=== PATIENT | male | born 1955 | race Caucasian/White ===

== ENCOUNTER 2023-04-06 15:48 | Emergency (ER) | payer OTHER, MEDICARE ==
[~2023-04-06] VITALS: Ht 185.4 cm; Wt 97.5 kg
[2023-04-06 15:58] VITALS: BP 183/82
[2023-04-06] MEDS ORDERED: AMIT50 PO (18:27)
[2023-04-06] MEDS ORDERED: PARO20 PO (18:27)
[2023-04-06] MEDS ORDERED: Prilosec Otc20 MG PO (18:28)
[2023-04-06] MEDS ORDERED: Percocet 5-3251 EACH PO (19:58)
== END 2023-04-06 20:25 | disposition home or self-care (01) ==
LOC: ER 15:48
DX: S49.92XA Unspecified injury of left shoulder and upper arm, initial encounter (principal); M25.512 Pain in left shoulder; V28.49XA Other motorcycle driver injured in noncollision transport accident in traffic accident, initial encounter; Z88.5 Allergy status to narcotic agent; Z79.899 Other long term (current) drug therapy
CPT/HCPCS: 73030; 96374; 99284-25; A9270; J1885

== ENCOUNTER 2024-10-10 18:07 | Inpatient (IN) | payer MEDICARE, OTHER ==
[~2024-10-10] VITALS: Ht 190.5 cm; Wt 80.1 kg
[~2024-10-10 18:07] MED LIST: AMIT50 PO; PARO20 PO; Percocet 5-3251 EACH PO; Prilosec Otc20 MG PO
[2024-10-10] MEDS ORDERED: Thiamine HCl 100 MG Tab PO ONE (18:35)
[2024-10-10] MEDS ORDERED: LORazepam 2 MG/ML 1ML Injection IV ONE (18:35)
[2024-10-10] MEDS ORDERED: NS 1,000 ML IV SCH ×2 (18:40→23:55)
[2024-10-10] MEDS ORDERED: Folic Acid 1 MG TAB PO ONE (18:40)
[2024-10-10 18:57] LABS: BASOPHILS ABSOLUTE AUTO 0.04 K/mm3 (0.00-0.23); BASOPHILS PERCENT AUTO 0 % (0-2); EOSINOPHILS ABSOLUTE AUTO 0.04 K/mm3 (0.00-0.68); EOSINOPHILS PERCENT AUTO 0 % (0-6); Hematocrit 46.3 % (37.0-53.0); Hemoglobin 16.3 g/dL (13.5-17.5); IMMATURE GRAN ABSOLUTE AUTO 0.04 K/mm3 (0.00-0.10); IMMATURE GRAN PERCENT AUTO 0 % (0-1); LYMPHOCYTES ABSOLUTE AUTO 1.23 K/mm3 (0.84-5.20); LYMPHOCYTES PERCENT AUTO 11 % (21-46); MONOCYTES ABSOLUTE AUTO 1.18 K/mm3 (0.16-1.47); MONOCYTES PERCENT AUTO 10 % (4-13); Mean Corpuscular HGB 33.7 pg (26.0-34.0); Mean Corpuscular HGB Conc 35.2 g/dL (31.5-36.5); Mean Corpuscular Volume 96 fL (80-100); Mean Platelet Volume 9.8 fL (9.1-12.4); NEUTROPHILS ABSOLUTE AUTO 9.02 K/mm3 (1.96-9.15); NEUTROPHILS PERCENT AUTO 78 % (41-73); Platelet Count 426 K/mm3 (150-400); RDW Coefficient Variation 13.9 % (11.7-14.2); RDW Standard Deviation 49.2 fL (35.1-46.3); Red Blood Cell Count 4.83 M/mm3 (4.30-5.90); White Blood Cell Count 11.55 K/mm3 (4.00-11.30)
[2024-10-10 19:21] LABS: Ethanol (Alcohol), Blood, Med <3 mg/dL
[2024-10-10 19:34] LABS: Alanine Aminotransfer (ALT/SGP 57 U/L (12-78); Albumin, Blood 3.8 g/dL (3.4-5.0); Albumin/Globulin Ratio 1.2 (0.8-1.8); Alk Phos 104 U/L (50-136); Anion Gap 14 mmol/L (3-11); Aspartate Aminotrans (AST/SGOT 101 U/L (12-37); Bilirubin, Total 1.1 mg/dL (0.1-1.0); Blood Urea Nitrogen 19 mg/dL (8-24); Bun/Creatinine Ratio 25.9 (12.0-20.0); CO2, Blood 26 mmol/L (21-32); Calcium, Blood 9.6 mg/dL (8.5-10.1); Chloride, Blood 102 mmol/L (98-108); Creatinine, Blood 0.73 mg/dL (0.60-1.20); Globulin, Blood 3.3 g/dL (2.2-4.0); Glomerular Filtration Rate 99 (60-); Glucose, Blood 133 mg/dL (70-99); Potassium, Blood 3.7 mmol/L (3.5-5.5); Sodium, Blood 138 mmol/L (136-145); Total Protein, Blood 7.1 g/dL (6.4-8.2)
[2024-10-10 19:36] LABS: Influenza A, PCR NEGATIVE (NEGATIVE); Influenza B, PCR NEGATIVE (NEGATIVE); Resp Syncytial Virus, PCR NEGATIVE (NEGATIVE); SARS-Cov-2 (COVID-19) PCR, MMC NEGATIVE (NEGATIVE)
[2024-10-10] MEDS ORDERED: HydrALAZINE HCl 20 MG / ML 1ML Vial IV ONE (20:35)
[2024-10-10] MEDS ORDERED: ChlordiazePOXIDE 25 MG Cap PO PRN (23:55)
[2024-10-10] MEDS ORDERED: LORazepam 2 MG/ML 1ML Injection IV PRN (23:55)
[2024-10-10] MEDS ORDERED: Ondansetron HCl 2 MG / ML 2ML Vial IV PRN (23:55)
[2024-10-11] VITALS (10 sets, daily range): BP systolic 135–194; BP diastolic 70–117
[2024-10-11] MEDS ORDERED: Enoxaparin 40 MG/0.4 ML SYR SC SCH (00:21)
[2024-10-11] MEDS ORDERED: Thiamine HCl 100 MG in NS 50 ML IV SCH (00:24)
[2024-10-11] MEDS ORDERED: Potassium Chloride 40 MEQ in NS 250 ML IV ONE (00:25)
[2024-10-11] MEDS ORDERED: Magnesium Sulf 2 GM/Water 50ML 50 ML IV ONE (02:20)
[2024-10-11] MEDS ORDERED: HydrALAZINE HCl 20 MG / ML 1ML Vial IV PRN (03:30)
[2024-10-11] MEDS ORDERED: Melatonin 5 MG Tablet PO PRN (03:30)
--- NOTE | 2024-10-11 04:48 | NUR ---
ASSUMPTION / SHIFT SUMMARY PT ARRIVED TO UNIT @0100. AXO4 BUT MAKES "ODD" STATEMENTS REGARDING HEALTH AND SITUATION AT TIMES. COOPERATIVE/PLEASANT. NOTED TO BE SLIGHTLY ANXIOUS REGARDING MEDICATIONS, ASKS A LOT OF QUESTIONS REGARDING EACH MEDICATION BEING GIVEN, EVEN FLUIDS BUT ULTIMATELY IS WILLING TO TAKE WHAT IS PRESCRIBED WITH EDUCATION. PT NT TOLERATING IV KCL, PO TO BE ADMINISTERED. PT REQESTING TO NOT BE HOOKED UP TO IV FLUIDS HE HAS BEEN UNABLE TO SLEEP AT ALL DESPITE PO MELATONIN, LIBRIUM, AND IV ATIVAN, PT ULTIMATELY DISCONNECTED FROM FLUIDS @0500 PER REQUEST, WILL RESTART WHILE AWAKE. PT WITH HTN, IV MEDS ADMINISTERED TO EFFECT, STABLE. PT REMAINS ON RA. CIWAS STABLE WITH MEDS PER EMAR. PT SOMEWHAT WITHDRAWN AND UPSET ABOUT LACK OF SLEEP BUT IS THANKFUL FOR THIS RN ATTEMPTING TO MITIGATE WITH MEDICATION. APOLOGIES FOR BECOMING "GRUMPY" AT TIMES. HAS SET OFF BED ALARM THIS SHIFT BUT IS REORIENTABLE. OTHERWISE, ADMISSION COMPLETED. BED ALARM ON. CALL LIGHT WITHIN REACH.
[2024-10-11 04:49] LABS: BASOPHILS ABSOLUTE AUTO 0.07 K/mm3 (0.00-0.23); BASOPHILS PERCENT AUTO 1 % (0-2); EOSINOPHILS ABSOLUTE AUTO 0.18 K/mm3 (0.00-0.68); EOSINOPHILS PERCENT AUTO 2 % (0-6); Hematocrit 43.3 % (37.0-53.0); IMMATURE GRAN ABSOLUTE AUTO 0.03 K/mm3 (0.00-0.10); IMMATURE GRAN PERCENT AUTO 0 % (0-1); LYMPHOCYTES ABSOLUTE AUTO 2.48 K/mm3 (0.84-5.20); LYMPHOCYTES PERCENT AUTO 21 % (21-46); MONOCYTES ABSOLUTE AUTO 1.31 K/mm3 (0.16-1.47); MONOCYTES PERCENT AUTO 11 % (4-13); Mean Corpuscular HGB 33.5 pg (26.0-34.0); Mean Corpuscular HGB Conc 34.6 g/dL (31.5-36.5); Mean Corpuscular Volume 97 fL (80-100); Mean Platelet Volume 10.2 fL (9.1-12.4); NEUTROPHILS ABSOLUTE AUTO 7.54 K/mm3 (1.96-9.15); NEUTROPHILS PERCENT AUTO 65 % (41-73); Platelet Count 364 K/mm3 (150-400); RDW Coefficient Variation 13.9 % (11.7-14.2); Red Blood Cell Count 4.48 M/mm3 (4.30-5.90); White Blood Cell Count 11.61 K/mm3 (4.00-11.30)
[2024-10-11 05:21] LABS: Albumin, Blood 3.2 g/dL (3.4-5.0); Albumin/Globulin Ratio 1.1 (0.8-1.8); Bilirubin, Total 1.3 mg/dL (0.1-1.0); Bun/Creatinine Ratio 24.9 (12.0-20.0); Calcium, Blood 8.5 mg/dL (8.5-10.1); Creatinine, Blood 0.76 mg/dL (0.60-1.20); Globulin, Blood 2.8 g/dL (2.2-4.0); Potassium, Blood 3.5 mmol/L (3.5-5.5)
[2024-10-11] MEDS ORDERED: Potassium Chloride 20 MEQ TabCR PO ONE (08:00)
[2024-10-11] MEDS ORDERED: Triamcinolone Acet 0.1% Ointment 15 GM TOP PRN (08:50)
[2024-10-11] MEDS ORDERED: Losartan Potassium 25 MG Tab PO SCH (09:00)
[2024-10-11] MEDS ORDERED: Methyl Salicylate/Menth/Camph 57 GM TUBE TOP PRN (09:00)
[2024-10-11] MEDS ORDERED: Nicotine 21 MG PATCH TOP SCH (09:00)
[2024-10-11] MEDS ORDERED: Folic Acid 1 MG in NS 50 ML IV SCH (09:00)
[2024-10-11] MEDS ORDERED: Sodium Phosphate 15 MM in Dextrose 5% 250 ML IV STA (09:04)
[2024-10-11 11:15] LABS: Source, Urine Clean Catch
[2024-10-11 11:28] LABS: Appearance, Urine Clear (Clear); Bilirubin, Urine Neg (Neg); Blood, Urine 1+ (Neg); Color, Urine Yellow (P-Yellow); Glucose Qualitative, Urine Neg (Neg); Ketones, Urine Neg (Neg); Leukocyte Esterase, Urine Neg (Neg); Nitrite, Urine Neg (Neg); Protein, Urine Neg (Neg); Urobilinogen, Urine NORM (Normal)
[2024-10-11 11:41] LABS: U Amphetamine Screen Not Detected; U Barbituate Screen Not Detected; U Benzodiazapine Screen DETECTED; U Buprenorphine Screen Not Detected; U Cannabinoids Screen Not Detected; U Cocaine Screen Not Detected; U Methadone Screen Not Detected; U Methamphetamine Screen Not Detected; U Opiates Screen Not Detected; U Oxycodone Screen Not Detected; U Phencyclidine Screen Not Detected
[2024-10-11 11:46] LABS: Bacteria Not Seen /hpf; Red Blood Cells, Urine 0-2 /hpf (0-2); Squamous Epithelial Cells Rare /hpf (Few); White Blood Cells, Urine Not Seen /hpf (0-5)
--- NOTE | 2024-10-11 12:25 | NUR ---
MORNING SUMMARY THE PT IS DROWSY AND ORIENTEDX4; CIWA'S 7-14 THIS MORNING. MEDICATIONS PER EMAR. THE PT IS ABLE TO FOLLOW CONVERSATION, BUT IS IRRITABLE AND ANXIOUS. TREMORS AND OCCASIONAL DIAPHORESIS NOTED. HE IS DISORIENTED AFTER WAKING UP FROM NAPS, BUT IS ABLE TO SELF ORIENT. ETOH W/D MEDICATIONS GIVEN PER EMAR. THE PT USES THE URINAL AND OCCASIONALLY HAS ACCIDENTS WITH THE URINAL. NO BM THIS SHIFT THUS FAR, MILD NAUSEA NOTED THIS AFTERNOON. THE PT IS SR 80'S-100'S ON TELE W/ PROLONGED QTC. PROVIDERS AWARE. HE HAS BEEN HAVING HTN AND WAS STARTED ON COZZAR THIS MORNING. BLOOD PRESSURE REMAINS ELEVATED AT 1200 REASSESSMENT. THIS RN CALLED DR. GRIFFITHS TO SEE IF THEY WANTED THE HYDRALIZINE GIVEN. THE COZZAR NEEDS MORE TIME TO KICK IN SO 10MG HYDRALIZINE IV WAS GIVEN. BLOOD PRESSURE IMPROVED. HE REMAINS ON RA W/ SP02 >93%. HE DENIES ANY SOB. THE PT HAS A RASH SCATTERED T/O HIS BODY THAT IS ITCHY AND PAINFUL. DR. GRIFFITHS ORDERED TOPICAL CREAM. BED ALARM ON, BED IN LOW, YELLOW GOWN/SOCKS ON, DOOR OPEN. SEE NOTES FOR UPDATES.
--- NOTE | 2024-10-11 13:48 | NUR ---
THIS RN CALLED DR. GRIFFITHS BECAUSE THE PT'S CIWA IS CURRENTLY 15. HE IS GOING TO CHANGED FREQUENCY OF SOME ETOH W/D MEDICATIONS. SEE NOTES FOR UPDATES.
[2024-10-11] MEDS ORDERED: ChlordiazePOXIDE 25 MG Cap PO PRN (13:55)
[2024-10-11] MEDS ORDERED: Gabapentin 300 MG Cap PO SCH (14:00)
[2024-10-11] MEDS ORDERED: NS 1,000 ML IV SCH ×3 (16:50→19:00)
--- NOTE | 2024-10-11 16:58 | NUR ---
END OF SHIFT SUMMARY THE PT IS DROWSY BUT REMAINS ORIENTEDX4. HE STILL HAS ANXIETY AND IS EASILY IRRITABLE. MEDICATIONS PER EMAR FOR CIWA'S 7-15. HE USED THE BSC THIS AFTERNOON AND IS A 1P ASSIST. BEDBATH AND LINEN CHANGE PER PCT. ON TELE HE IS SR 70'S-100'S AND BP REMAINS ELEVATED. MEDS PER EMAR. HE REMAINS ON RA W/ SP02 >93%. HE HAS USED THE URINAL WHILE IN BED AND ALSO USED A WATER CUP TO URINATE IN. BED ALARM REMAINS INTACT, BED IN LOW, DOOR OPEN, AND CALL LIGHT IN REACH. SEE NOTES FOR UPDATES.
[2024-10-11] MEDS ORDERED: TraZODone HCl 50 MG Tab PO PRN (20:05)
[2024-10-12 01:07] VITALS: BP 161/89
[2024-10-12 03:13] VITALS: BP 141/91
--- NOTE | 2024-10-12 04:32 | NUR ---
REVIEWED AND AGREED WITH ALL CABLE INSTALLER DOCUMENTATION
--- NOTE | 2024-10-12 04:40 | NUR ---
SHIFT SUMMARY. SHIFT HAS OVERALL GONE WELL, NO ACUTE CHANGES. PT MENTATION HAS REMAINED MOSTLY STABLE OVER COURSE OF SHIFT, AOX2-3. IMPULSIVE AT TIMES ALTHOUGH HAS BEEN REDIRECTABLE AND COOPERATIVE WITH CARE. AT TIMES CAN BE AGITATED AND ANXIOUS BUT HAS BEEN MANAGED VIA EMAR THUS FAR. CIWAs HAVE RANGED FROM 2-11. PT WAS VERY CONCERNED ABOUT GETTING SLEEP EARLY IN SHIFT REPORTING THAT HE WAS NOT ABLE TO GET ANY SLEEP NIGHT PRIOR AND THAT THE MEDICATION THEY GAVE TO HELP SLEEP WAS INEFFECTIVE, CAUSING A LOT OF FRUSTRATION. SPOKE WITH DR. STEPHENS WHO ORDERED OT DOSE OF TRAZODONE WHICH HAS ALLOWED PT TO REST COMFORTABLY THROUGHOUT MOST OF SHIFT. OTHERWISE SHIFT HAS BEEN UNREMARKABLE. VITALS STABLE. RUNNING SINUS W/1st DEGREE AND BBB THROUGHOUT SHIFT. MAINTAINING ADEQUATE SATURATION ON ROOM AIR. BED LOCKED IN LOWEST POSITION. CALL LIGHT LEFT WITHIN REACH. CONTINUING TO MONITOR.
[2024-10-12 06:14] LABS: BASOPHILS ABSOLUTE AUTO 0.03 K/mm3 (0.00-0.23); BASOPHILS PERCENT AUTO 0 % (0-2); EOSINOPHILS ABSOLUTE AUTO 0.25 K/mm3 (0.00-0.68); EOSINOPHILS PERCENT AUTO 3 % (0-6); Hematocrit 42.6 % (37.0-53.0); Hemoglobin 14.7 g/dL (13.5-17.5); IMMATURE GRAN ABSOLUTE AUTO 0.05 K/mm3 (0.00-0.10); IMMATURE GRAN PERCENT AUTO 1 % (0-1); LYMPHOCYTES ABSOLUTE AUTO 1.07 K/mm3 (0.84-5.20); LYMPHOCYTES PERCENT AUTO 11 % (21-46); MONOCYTES ABSOLUTE AUTO 0.99 K/mm3 (0.16-1.47); MONOCYTES PERCENT AUTO 10 % (4-13); Mean Corpuscular HGB 34.3 pg (26.0-34.0); Mean Corpuscular HGB Conc 34.5 g/dL (31.5-36.5); Mean Corpuscular Volume 99 fL (80-100); Mean Platelet Volume 10.5 fL (9.1-12.4); NEUTROPHILS ABSOLUTE AUTO 7.42 K/mm3 (1.96-9.15); NEUTROPHILS PERCENT AUTO 76 % (41-73); Platelet Count 321 K/mm3 (150-400); RDW Coefficient Variation 14.6 % (11.7-14.2); RDW Standard Deviation 53.9 fL (35.1-46.3); Red Blood Cell Count 4.29 M/mm3 (4.30-5.90); White Blood Cell Count 9.81 K/mm3 (4.00-11.30)
[2024-10-12 06:21] LABS: Bun/Creatinine Ratio 16.1 (12.0-20.0); Calcium, Blood 8.5 mg/dL (8.5-10.1); Creatinine, Blood 0.68 mg/dL (0.60-1.20); Potassium, Blood 3.7 mmol/L (3.5-5.5)
--- NOTE | 2024-10-12 06:54 | NUR ---
pt awoke recently very agitated, anxious, restless. ciwa 12 at this time. per pt refusing any further medications. spoke with dr. lomax who reported he would speak with patient. noted.
--- NOTE | 2024-10-12 07:15 | NUR ---
AM- Pt agitated in room. States that he is upset about his belongings being out of reach, the bed alarm being on, not being able to get up without assistance. Pt states he feels that staff is incompetent. Attempted to explain the reason for his belongings being out of reach (so he wouldn't be as tempted to leave), bed alarm and need for SBA when up. Explained the symptoms of ETOH withdrawl, including agitation, and that I thought he would feel better with some ativan. Pt refused all medications. Physician coming into room to talk with patient.
--- NOTE | 2024-10-12 07:45 | NUR ---
AMA- Pt insisted on leaving ama. Physicians in room. Pt pulled out IV with them there. Physicians discussed that he would be leaving AMA. Pt states that he is not going to stay. REfused to sign AMA paperwork. Nursing supporvisor beside room and aware of pt leaving ama and refusing to sign paper work. Pt got dressed and walked out without assistance.
== END 2024-10-12 07:43 | disposition left against medical advice (07) | DRG 894 ==
LOC: ER 18:07 → ERHOLD 23:09 → PCU 23:09
PROVIDERS: Emergency Medicine; Student in an Organized Health Care Education/Training Program; ADMIT Internal Medicine
PROC: HZ2ZZZZ Detoxification Services for Substance Abuse Treatment (ICD-10-PCS; principal; 2024-10-10)
DX: F10.239 Alcohol dependence with withdrawal, unspecified (principal); I49.3 Ventricular premature depolarization; R94.31 Abnormal electrocardiogram [ECG] [EKG]; E53.8 Deficiency of other specified B group vitamins; I10 Essential (primary) hypertension; K21.9 Gastro-esophageal reflux disease without esophagitis; I48.91 Unspecified atrial fibrillation; R27.0 Ataxia, unspecified; F17.200 Nicotine dependence, unspecified, uncomplicated; Y90.0 Blood alcohol level of less than 20 mg/100 ml; Z53.29 Procedure and treatment not carried out because of patient's decision for other reasons; Z60.2 Problems related to living alone; Z88.5 Allergy status to narcotic agent
CPT/HCPCS: 0241U; 36415; 70450; 71046; 80048; 80053; 80320; 81001; 82607; 82746; 83036; 83690; 83735; 83880; 84100; 84484; 85025; 93005; 93010; 96361; 96374; 96375; 99285-25; A9270; J0360; J2060; J3411; J3475; J3480; J7030; J7050; J7060

== ENCOUNTER 2024-10-29 20:41 | Inpatient (IN) | payer MEDICARE, OTHER ==
[~2024-10-29] VITALS: Ht 190.5 cm; Wt 82.6 kg
[2024-10-29 21:31] LABS: BASOPHILS ABSOLUTE AUTO 0.09 K/mm3 (0.00-0.23); BASOPHILS PERCENT AUTO 1 % (0-2); EOSINOPHILS ABSOLUTE AUTO 0.02 K/mm3 (0.00-0.68); EOSINOPHILS PERCENT AUTO 0 % (0-6); Hematocrit 47.5 % (37.0-53.0); Hemoglobin 16.7 g/dL (13.5-17.5); IMMATURE GRAN ABSOLUTE AUTO 0.05 K/mm3 (0.00-0.10); IMMATURE GRAN PERCENT AUTO 0 % (0-1); LYMPHOCYTES ABSOLUTE AUTO 1.56 K/mm3 (0.84-5.20); LYMPHOCYTES PERCENT AUTO 10 % (21-46); MONOCYTES ABSOLUTE AUTO 1.21 K/mm3 (0.16-1.47); MONOCYTES PERCENT AUTO 8 % (4-13); Mean Corpuscular HGB 34.5 pg (26.0-34.0); Mean Corpuscular HGB Conc 35.2 g/dL (31.5-36.5); Mean Corpuscular Volume 98 fL (80-100); Mean Platelet Volume 10.6 fL (9.1-12.4); NEUTROPHILS ABSOLUTE AUTO 12.19 K/mm3 (1.96-9.15); NEUTROPHILS PERCENT AUTO 81 % (41-73); Platelet Count 395 K/mm3 (150-400); RDW Coefficient Variation 14.3 % (11.7-14.2); RDW Standard Deviation 52.1 fL (35.1-46.3); Red Blood Cell Count 4.84 M/mm3 (4.30-5.90); White Blood Cell Count 15.12 K/mm3 (4.00-11.30)
[2024-10-29 22:00] LABS: Albumin, Blood 3.9 g/dL (3.4-5.0); Albumin/Globulin Ratio 1.1 (0.8-1.8); Bilirubin, Total 1.1 mg/dL (0.1-1.0); Bun/Creatinine Ratio 23.1 (12.0-20.0); Calcium, Blood 9.1 mg/dL (8.5-10.1); Creatinine, Blood 0.91 mg/dL (0.60-1.20); Globulin, Blood 3.5 g/dL (2.2-4.0); Potassium, Blood 3.4 mmol/L (3.5-5.5); Total Protein, Blood 7.4 g/dL (6.4-8.2)
[2024-10-30] MEDS ORDERED: Lactated Ringer's 1,000 ML IV ONE (00:15)
[2024-10-30] MEDS ORDERED: Diazepam 5 MG / ML 2ML SYR IV ONE (00:15)
[2024-10-30] MEDS ORDERED: Ondansetron HCl 2 MG / ML 2ML Vial IV ONE (00:25)
[2024-10-30] MEDS ORDERED: Acetaminophen 325 MG TABLET PO PRN (03:10)
[2024-10-30] MEDS ORDERED: Ondansetron HCl 2 MG / ML 2ML Vial IV PRN (03:10)
[2024-10-30] MEDS ORDERED: ChlordiazePOXIDE 25 MG Cap PO PRN ×2 (03:10→21:10)
[2024-10-30] MEDS ORDERED: LORazepam 2 MG/ML 1ML Injection IV PRN (03:10)
[2024-10-30] MEDS ORDERED: NS 1,000 ML IV SCH (04:00)
[2024-10-30] MEDS ORDERED: Potassium Chloride 40 MEQ in NS 250 ML IV ONE (04:50)
[2024-10-30] MEDS ORDERED: Thiamine HCl 100 MG in NS 50 ML IV SCH (05:00)
[2024-10-30] MEDS ORDERED: Folic Acid 1 MG in NS 50 ML IV SCH (05:01)
[2024-10-30 06:56] LABS: BASOPHILS ABSOLUTE AUTO 0.06 K/mm3 (0.00-0.23); BASOPHILS PERCENT AUTO 1 % (0-2); EOSINOPHILS ABSOLUTE AUTO 0.09 K/mm3 (0.00-0.68); EOSINOPHILS PERCENT AUTO 1 % (0-6); Hematocrit 42.2 % (37.0-53.0); Hemoglobin 14.7 g/dL (13.5-17.5); IMMATURE GRAN ABSOLUTE AUTO 0.05 K/mm3 (0.00-0.10); IMMATURE GRAN PERCENT AUTO 0 % (0-1); LYMPHOCYTES ABSOLUTE AUTO 1.96 K/mm3 (0.84-5.20); LYMPHOCYTES PERCENT AUTO 17 % (21-46); MONOCYTES ABSOLUTE AUTO 1.31 K/mm3 (0.16-1.47); MONOCYTES PERCENT AUTO 11 % (4-13); Mean Corpuscular HGB 34.3 pg (26.0-34.0); Mean Corpuscular HGB Conc 34.8 g/dL (31.5-36.5); Mean Corpuscular Volume 99 fL (80-100); Mean Platelet Volume 10.7 fL (9.1-12.4); NEUTROPHILS ABSOLUTE AUTO 8.35 K/mm3 (1.96-9.15); NEUTROPHILS PERCENT AUTO 71 % (41-73); Platelet Count 325 K/mm3 (150-400); RDW Coefficient Variation 14.2 % (11.7-14.2); RDW Standard Deviation 51.5 fL (35.1-46.3); Red Blood Cell Count 4.28 M/mm3 (4.30-5.90); White Blood Cell Count 11.82 K/mm3 (4.00-11.30)
[2024-10-30 07:16] LABS: Magnesium, Blood 1.7 mg/dL (1.6-2.4)
[2024-10-30 07:19] LABS: Beta-hydroxybutyrate 35.3 mg/dL (0.2-2.8)
[2024-10-30 07:20] LABS: Albumin, Blood 3.1 g/dL (3.4-5.0); Albumin/Globulin Ratio 1.1 (0.8-1.8); Bilirubin, Total 1.3 mg/dL (0.1-1.0); Bun/Creatinine Ratio 26.8 (12.0-20.0); Calcium, Blood 8.2 mg/dL (8.5-10.1); Creatinine, Blood 0.82 mg/dL (0.60-1.20); Globulin, Blood 2.8 g/dL (2.2-4.0); Potassium, Blood 3.8 mmol/L (3.5-5.5); Total Protein, Blood 5.9 g/dL (6.4-8.2)
[2024-10-30] MEDS ORDERED: Enoxaparin 40 MG/0.4 ML SYR SC SCH (09:00)
[2024-10-30 12:16] LABS: Source, Urine Clean Catch
[2024-10-30 12:21] LABS: Appearance, Urine Clear (Clear); Bilirubin, Urine Neg (Neg); Blood, Urine 2+ (Neg); Color, Urine Yellow (P-Yellow); Glucose Qualitative, Urine Neg (Neg); Ketones, Urine 3+ (Neg); Leukocyte Esterase, Urine 1+ (Neg); Nitrite, Urine Neg (Neg); Protein, Urine 2+ (Neg); Specific Gravity, Urine 1.015 (1.003-1.022); Urobilinogen, Urine 2+ (Normal)
[2024-10-30 12:28] LABS: Bacteria Few /hpf; Hyaline Casts 0-2 /lpf (0-2); Squamous Epithelial Cells Rare /hpf (Few)
[2024-10-30] MEDS ORDERED: Nicotine 21 MG PATCH TOP ONE (14:50)
[2024-10-30 15:12] VITALS: BP 183/95
[2024-10-30] MEDS ORDERED: AmLODIPine Besylate 5 MG Tab PO SCH (15:25)
[2024-10-30] MEDS ORDERED: DiphenhydrAMINE HCL 25 MG Cap PO PRN (15:25)
[2024-10-30] MEDS ORDERED: ChlordiazePOXIDE 25 MG Cap PO SCH (15:30)
[2024-10-30 16:22] VITALS: BP 190/120
[2024-10-30 17:02] VITALS: BP 191/91
[2024-10-30] MEDS ORDERED: HydrALAZINE HCl 20 MG / ML 1ML Vial IV PRN (17:15)
--- NOTE | 2024-10-30 18:09 | NUR ---
SHIFT SUMMARY PT AOX4, SBA TO THE BR. REPOSITIONS SELF IN BED. EVENTS PER TELE, DR. WRIGHT NOTIFIED. SEE SHIFT ASSESSMENT. MEDICATED FOR HYPERTENSION PER THE EMAR. CIWA SCORING IN PROGRESS. MEDICATED FOR ETOH WITHDRAWL PER THE EMAR. MEDICATED FOR ITCHING PER THE EMAR. PT CALLS. HE IS ABLE TO MAKE HIS NEEDS KNOWN. CALL LIGHT WITHIN REACH, BED LOCKED AND IN THE LOWEST POSITION. WILL REPORT TO ONCOMING NURSE.
[2024-10-30 18:11] VITALS: BP 166/99
[2024-10-30 19:59] VITALS: BP 147/83
--- NOTE | 2024-10-30 21:09 | NUR ---
NEW T-ORDER RECEIVED FROM THE ON-CALL HOSPITALIST:CHANGE LIBRIUM ORDER TO: LIBRIUM 25-50MG PO Q6HRS PRN. ENTERED TO [facility], SEE EMAR.
[2024-10-30 23:59] VITALS: BP 173/106
[2024-10-31] MEDS ORDERED: TraZODone HCl 100 MG Tab PO ONE (01:10)
--- NOTE | 2024-10-31 01:11 | NUR ---
NEW T-ORDER RECEIVED FROM THE ON-CALL HOSPITALIST : TRAZADONE 100MG PO QHS AND NOW DOSE. ENTERED TO [facility], SEE EMAR.
[2024-10-31 01:25] VITALS: BP 158/89
--- NOTE | 2024-10-31 03:19 | NUR ---
SHIFT SUMMARY PT AWAKE MOST OF THIS SHIFT, AGITATED, RESTLESS, SOME CONFUSION NOTED. UNABLE TO REORIENT. MEDICATED PER EMAR WITH 2MG ATIVAN IV Q4HRS AND PRN ORDERED. CIWA Q4HRS AND PRN. SCORES BETWEEN 9-12 R/T AGITATION, TREMORS, DIAPHORESIS, ITCHING T/O THE BODY. PT ALSO REPORTS HEARING VOICES THAT USUALLY AREN'T THERE. NEW ORDER FOR TRAZADONE 100MG QHS RECEIVED FROM THE ON-CALL HOSPITALIST. PT IS WEAK, UNSTEADY GAIT AND A HIGH FALL RISK DURING THIS SHIFT. BED ALARM FOR SAFETY. ASSISTED WHEN VOIDING TO URINAL. 1-PERSON ASSIST WITH FWW TO THE RESTROOM. BED AT THE LOWEST POSITION, CALL LIGHT W/I REACH. PT IS ABLE TO MAKE HIS NEEDS KNOWN AND HAVE BEEN COOPERATIVE WITH CARE.
[2024-10-31] MEDS ORDERED: NS 250 ML IV PRN (03:40)
[2024-10-31 04:51] VITALS: BP 146/105
[2024-10-31 07:58] VITALS: BP 160/99
[2024-10-31 16:51] VITALS: BP 157/93
[2024-10-31] MEDS ORDERED: D5W-1/2NS 1,000 ML IV SCH (17:25)
[2024-10-31 19:07] VITALS: BP 164/96
--- NOTE | 2024-10-31 19:10 | NUR ---
PT A&OX3, SLEPT THROUGH MORNING, REFUSED AM MEDICATIONS D/T NOT FEELING ALERT ENOUGH TO SWALLOW. HIGHEST CIWA 12, 2 MG ATIVAN GIVEN X1. C/O NAUSEA, ZOFRAN GIVEN WITH LITTLE EFFECT. 1PA TO BATHROOM. COOPERATIVE WITH CARES, CALLS APPROPRIATELY.
[2024-10-31] MEDS ORDERED: TraZODone HCl 100 MG Tab PO SCH (21:00)
[2024-10-31 23:47] VITALS: BP 150/81
[2024-11-01 04:11] VITALS: BP 146/81
--- NOTE | 2024-11-01 04:13 | NUR ---
SHIFT SUMMARY PT ALERT ORIENTED X 4 ALL SHIFT DID GET UP ONCE AND AMBULATED TO THE BATHROOM WITH 1 PERSON ASSIST. HIS CIWA HAS BEEN 13, 10, 12 AND 9. ATIVAN WAS GIVEN X 1 AT 0130 WITH GOOD RESULTS. NO HALLUCINATIONS. REMAINS WITH TREMORS. VSS WITH A BP OF 146/81 AND HR 85-94. REMAINS ON RA SATTING AT 92-95%. HIS WITHDRAWLS SEEM TO BE GETTING BETTER. HE IS STILL HAVING SLIGHT NAUSEA AND HEADACHES. TYLENOL WAS GIVEN AT 2232. HE IS REQUESTING ALOT OF FOOD AND SNACKS AND IS GETTING WELL WITH NO EMESIS. REMAINS ON D5 1/2 NS AT 100. REMAINS ON TELEMETRY AT NSR AT 88. LABS TO BE DONE THIS AM. HE HAS BEEN AWAKE MOST OF THE NIGHT THOUGH EVEN AFTER ATIVAN WAS GIVEN. HES RESTING IN BED AT THIS TIME WITH CALL LIGHT IN REACH
[2024-11-01 05:47] LABS: BASOPHILS ABSOLUTE AUTO 0.04 K/mm3 (0.00-0.23); BASOPHILS PERCENT AUTO 1 % (0-2); EOSINOPHILS ABSOLUTE AUTO 0.29 K/mm3 (0.00-0.68); EOSINOPHILS PERCENT AUTO 4 % (0-6); Hematocrit 38.5 % (37.0-53.0); Hemoglobin 13.2 g/dL (13.5-17.5); IMMATURE GRAN ABSOLUTE AUTO 0.03 K/mm3 (0.00-0.10); IMMATURE GRAN PERCENT AUTO 0 % (0-1); LYMPHOCYTES ABSOLUTE AUTO 0.88 K/mm3 (0.84-5.20); LYMPHOCYTES PERCENT AUTO 11 % (21-46); MONOCYTES PERCENT AUTO 5 % (4-13); Mean Corpuscular HGB 34.2 pg (26.0-34.0); Mean Corpuscular HGB Conc 34.3 g/dL (31.5-36.5); Mean Corpuscular Volume 100 fL (80-100); Mean Platelet Volume 11.1 fL (9.1-12.4); NEUTROPHILS PERCENT AUTO 79 % (41-73); Platelet Count 231 K/mm3 (150-400); RDW Coefficient Variation 14.1 % (11.7-14.2); RDW Standard Deviation 51.8 fL (35.1-46.3); Red Blood Cell Count 3.86 M/mm3 (4.30-5.90); White Blood Cell Count 7.74 K/mm3 (4.00-11.30)
[2024-11-01 06:17] LABS: Albumin, Blood 2.8 g/dL (3.4-5.0); Albumin/Globulin Ratio 1.1 (0.8-1.8); Beta-hydroxybutyrate 1.5 mg/dL (0.2-2.8); Bilirubin, Total 0.6 mg/dL (0.1-1.0); Bun/Creatinine Ratio 17.7 (12.0-20.0); Calcium, Blood 8.1 mg/dL (8.5-10.1); Creatinine, Blood 0.85 mg/dL (0.60-1.20); Globulin, Blood 2.6 g/dL (2.2-4.0); Potassium, Blood 3.9 mmol/L (3.5-5.5); Total Protein, Blood 5.4 g/dL (6.4-8.2)
[2024-11-01 07:37] VITALS: BP 167/102
[2024-11-01 11:53] VITALS: BP 148/102
[2024-11-01] MEDS ORDERED: Hydrocortisone 1% Cream 30 gm TOP PRN (13:30)
[2024-11-01 16:11] LABS: Magnesium, Blood 1.8 mg/dL (1.6-2.4); Phosphorus, Blood 3.3 mg/dL (2.5-4.9)
[2024-11-01 16:13] VITALS: BP 181/105
--- NOTE | 2024-11-01 17:28 | NUR ---
SUMMARY- PT A/O X2-3, IMPULSIVE. CIWAA'S THIS SHIFT 8-11, MEDICATED ONCE THIS AM LIBRIUM 50MG, HELPED RELEIVE WITHDRAWL SS. PT GOT UP TO CHAIR FOR MEALS, AMBULATES TO BATHROOM WITH WALKER. ADQ STRENGTH, UNSTEADY GAIT. PT IMPULSIVE, SET OFF BED ALARM, CHAIR ALARM, REMINDED PT TO USE CALL LIGHT, STARTED USING CALL LIGHT MORE TOWARDS END OF SHIFT. PT TOERATING FOOD AND FLUID. PT HAS ITCHY RED SPLOTCHY RASH ON BACK AND RAC. TISSUE AROUND EYES RED AND SWOLLEN. APPEARS PT HAD A REACTION OF SOME SORT. MEDICATED WITH BENEDRYL 1730. IVF DC'D. BP REMAINS HIGH. REPORTED OFF TO DILSHAD SOMERS 1730 TO TAKE OVER CARE.
--- NOTE | 2024-11-01 17:37 | NUR ---
PT ADMITTED TO [facility] FLOOR 338 AT 1403, ORIENTED TO ROOM SET UP AND SAFETY. PT HAVING SEVERE HEADACHE AND LIGHT SENSITIVITY. CLOSED CURTAINS. GIVEN PT FLUIDS AND CALL LIGHT IN REACH.
--- NOTE | 2024-11-01 17:44 | NUR ---
THIS RN ASSUMED CARE OF PT. DURING BEDSIDE SHIFT REPORT, FRANCISCO COLLADO NOTICED WORSENING OF SWELLING IN BILATERAL EYELIDS. BENADRYL GIVEN AND DR. RUBIO NOTIFED. WILL CONTINUE TO MONITOR FOR WORSENING SYMPTOMS. PT DENIES PAIN AT THIS TIME.
[2024-11-01 19:38] VITALS: BP 173/114
[2024-11-01 23:46] VITALS: BP 135/88
--- NOTE | 2024-11-02 02:38 | NUR ---
PATIENT ALERT ALERT AND ORIENTED X2 DUE TO ALCOHOL WITHDRAWL EFFECT, PATIENT WAS RESTLESS AGGITTEDED WITH LITTLE NOR LESS SLEEP DESPITE MEDICATION PER EMAR THROUGH OUT THE SHIFT, CONSTANTLY DEMANDING MORE STRONGER MEDICATION THAT CAN HELP HIM TO SLEEP, PT RECEIVED ADEQUATE NURSING CARE , CALL LIGHT ANSWERED PROMMPTLY,PLACED WITHIN PT REACH, BED LOWERED AND ADJUSTED ACCORDING TO PATIENT COMFORT AND DESIRE.
[2024-11-02 03:25] VITALS: BP 141/82
--- NOTE | 2024-11-02 05:36 | NUR ---
SHIFT SUMMARY PT ALERT ORIENTED X 4 ABLE TO VERBALIZE NEEDS HAS BEEN STANDING AT SIDE OF BED TO USE URINAL WITH SBA. HES BEEN VERY RESTLESS THIS SHIFT WITH ITCHING TREMORS AND IS REALLY AGITATED CIWA WAS 8.6.10 AND 9 MEDICATED WITH ATIVAN X 2 WITH GOOD RESULTS. HE REMAINS WITH RED BLOTTCHY RASHES ALL OVER HIS BODY MEDICATED WITH HYDROCORTISONE CREAM TO AREA AND BENEDRYL WITH SOME RELIEF POSSIBLY R/T ALLERGIC REACTION FROM THIAMINE WHICH WAS HELD THIS SHIFT. REMAINS ON TELEMETRY AT ST AT 100 WITH BBB. HIS BP WAS AT 173/114 AT START OF SHIFT HYDRALAZINE WAS GIVEN AND BP WENT TO 135/88. HES SLEEPING AT THIS TIME WITH CALL LIGHT IN REACH
[2024-11-02 06:00] LABS: Bilirubin, Total 0.5 mg/dL (0.1-1.0); Calcium, Blood 8.6 mg/dL (8.5-10.1); Creatinine, Blood 0.79 mg/dL (0.60-1.20); Globulin, Blood 2.9 g/dL (2.2-4.0); Magnesium, Blood 1.8 mg/dL (1.6-2.4); Potassium, Blood 3.5 mmol/L (3.5-5.5); Total Protein, Blood 5.9 g/dL (6.4-8.2)
[2024-11-02 07:53] VITALS: BP 131/66
[2024-11-02] MEDS ORDERED: Multivitamins 1 Tab PO SCH (09:00)
[2024-11-02 11:53] VITALS: BP 135/79
[2024-11-02] MEDS ORDERED: Polyethylene Glycol 3350 17 gm PO PRN (13:15)
[2024-11-02 16:15] VITALS: BP 153/88
--- NOTE | 2024-11-02 16:35 | NUR ---
NO ACUTE CHANGES, RASH LOOKS BETTER BUT PATIENT STILL COMPAINS OF ITCHING, MEDICATED WITH LIBRIUM/ATIVAN/BENADRYL THROUGH OUT THE DAY. PATIENT EASILY ESCILATES WITH ANY CONVERSATION. REPORTED TO PATIENTS COUSIN WITH HIS APPROVAL COUSIN RIDDHI WHERE PATIENT LIVES ON HER PROPERTY. BED ALARM ON, SHOWERED TODAY, CALL LIGHT WITH IN REACH, WILL RELAY TO PM FRANCISCO
[2024-11-02 20:01] VITALS: BP 138/88
[2024-11-02] MEDS ORDERED: Docusate Sodium 100 MG Cap PO SCH (21:00)
[2024-11-03 00:11] VITALS: BP 149/109
[2024-11-03 03:05] VITALS: BP 143/97
--- NOTE | 2024-11-03 04:34 | NUR ---
SHIFT SUMMARY PT ALERT ORIENTED X 4 ABLE TO VERBALIZE NEEDS. HIS CIWA HAS BEEN 10,6,10 AND 7 THIS SHIFT. HES BEEN MEDICATED WITH LIBRIUM AND ATIVAN. HIS WITHDRAWLS SEEM TO BE GETTING BETTER BUT HE REMAINS WITH SOME TREMORS, HEADACHES, IRATE BEHAVIORS AT TIMES AND ANXIOUSNESS. HIS BP WAS AT 149/106. HE REMAINS WITH SOME ITCHING R/T POSSIBLE ALLERGIC REACTION. HE WAS GIVEN BENADRYL WITH SOME RELIEF. HE WAS ALSO GIVEN HYDROCORTISONE CREAM. REDNESS OF RASH SEEMS TO BE GETTING BETTER. RESTING IN BED AT THIUS TIME WITH CALL LIGHT IN REACH
[2024-11-03 06:21] LABS: Bilirubin, Total 0.4 mg/dL (0.1-1.0); Bun/Creatinine Ratio 17.1 (12.0-20.0); Calcium, Blood 8.6 mg/dL (8.5-10.1); Creatinine, Blood 0.82 mg/dL (0.60-1.20)
[2024-11-03 07:13] VITALS: BP 161/102
[2024-11-03] MEDS ORDERED: Metoprolol Succinate 25 MG TABCR PO SCH (10:00)
[2024-11-03 11:17] VITALS: BP 159/100
[2024-11-03 15:26] VITALS: BP 150/88
--- NOTE | 2024-11-03 19:37 | NUR ---
SHIFT SUMMARY PT A&OX4. PT SLOW SPEECH. PT ADMITTED DUE TO ETOH WITHDRAWL. PT REPORTS NO PAIN/CHEST DISCOMFORT/SOB. CIWA ASSESSMENTS COMPLETED. LAST CIWA WAS 9 DUE TO ANXIETY/AGITATION/TREMOR/ITCHY. PT STATED "HEARING TURKEYS DURING SHIFT. NO SIGN OF HYPOGLYCEMIMA NOTED. AT START OF SHIFT NIGHT RN REPORTED DID NOT GIVE THIAMINE DUE TO POSSIBLE REACTION TO MED. PT HAS HIVES THROUGHOUT BODY, STATES REALLY ITCHY, ATIVAN/BENEDRYL GIVEN, HYDROCORTIZONE APPLIED. PT STILL ITCHY THROUGH SHIFT. UNKNOWN SOURCE OF ALLERGY. REPORTED TO DR. DR. RUBIO REPORTED TO LET NIGHT RN KNOW "DON'T GIVE MEDS TONIGHT DUE TO UNKNOWN SOURCE." PT USES WALKER TO AMBULATE, PT HAS WEAKNESS, BEDALARM ON DUE TO IMPULSIVITY/AGITATION. PT ON TELE. TELE REPORTED INTERMITTED WANDERING ATRIAL PACEMAKER, NOTIFIED DR. RUBIO, NO NEW ORDERS APPLIED. PT EATS ADEQUATE. PT IN BED, BED IN LOWEST POSITION. CALL LIGHT IN REACH.
[2024-11-03 19:51] VITALS: BP 142/83
--- NOTE | 2024-11-03 20:00 | NUR ---
ASSUMED CARE OF PT AT 1900. REPORT RECEIVED AT BEDSIDE. PT PRESENTS IN BED. HAS BED ALARM ON BED SECONDARY TO PT'S IMPULSIVENESS. PT REQUESTS MEDICATIONS FOR ITCHING. NOTED URTICARIA TYPE RASH TO EXTREMITIES AND TO TRUNK. PT MEDICATED WITH BENADRYL AND TYLENOL PER HIS REQUEST. NOTED CIWA 8 AT THIS TIME. WILL REVIEW CHART AND PLAN OF CARE FOR THIS PT.
[2024-11-04 00:17] VITALS: BP 147/84
[2024-11-04] MEDS ORDERED: Magnesium Hydroxide Conc 10 ML UDC PO PRN (01:45)
[2024-11-04] MEDS ORDERED: Sod Phosphate/Sod Biphosphate 132 ML BTL PR ONE (03:25)
--- NOTE | 2024-11-04 03:50 | NUR ---
PT HAS SITTER OUTSIDE DOORWAY TO MONITOR PT SECONDARY TO FREQUENTLY GETTING OUT OF BED AND SETTING OFF THE BED ALARM. PT HAS GONE FOR TWO WALKS IN THE HALLWAY. NEEDS REMINDERS HOW TO USE WALKER. HE TENDS TO DIETARY DIRECTOR WALKER AND CARRY IT WITH HIM. PT HAS RECEIVED MILK OF MAGNESIA AND PT STATED THAT HE REALLY WANTS AN ENEMA. ORDER RECEIVED FOR FLEETS ENEMA. PT RECEIVES THIS AND HAS SMALL BOWEL MOVEMENT. PT BACK IN BED AT THIS TIME. PT WAS MEDICATED WITH ZOFRAN FOR COMPLAINT OF NAUSEA. PT HAS ASKED MULTIPLE STAFF FOR ATIVAN. HAVE EXPLAINED TO PT THAT THE PLAN, PER DR RUBIO WAS TO HOLD ATIVAN AND LIBRIUM TO SEE IF THERE IS ANY COORELATION WITH MEDS AND RASH.
[2024-11-04 04:10] VITALS: BP 149/93
[2024-11-04 06:47] LABS: Albumin, Blood 3.1 g/dL (3.4-5.0); Albumin/Globulin Ratio 1.1 (0.8-1.8); Bilirubin, Total 0.3 mg/dL (0.1-1.0); Calcium, Blood 8.6 mg/dL (8.5-10.1); Creatinine, Blood 0.83 mg/dL (0.60-1.20); Globulin, Blood 2.9 g/dL (2.2-4.0); Magnesium, Blood 2.3 mg/dL (1.6-2.4); Potassium, Blood 3.6 mmol/L (3.5-5.5)
--- NOTE | 2024-11-04 06:48 | NUR ---
HAVE MEDICATED PT WITH ANOTHER DOSE OF BENADRYL THIS MORNING FOR COMPLAINTS OF ITCHING. NO NOTED INTESIFYING OF RASH THROUGH THE NIGHT. PT HAS ONLY SLEPT FOR APPROX AN HOUR THIS SHIFT. AWAKE AT THIS TIME. WILL CONTINUE TO MONITOR PT, AND WILL REPORT OFF TO ONCOMING RN.
[2024-11-04 08:09] VITALS: BP 141/80
[2024-11-04 11:39] VITALS: BP 143/88
[2024-11-04] MEDS ORDERED: Acetaminophen650 M1 PO (14:09)
[2024-11-04] MEDS ORDERED: DOCU100 PO (14:10)
[2024-11-04] MEDS ORDERED: AMLO5 PO (14:10)
[2024-11-04] MEDS ORDERED: BENADRYL25 MG PO (14:10)
[2024-11-04] MEDS ORDERED: HYDROCORTISONE-28 GM TOP (14:11)
[2024-11-04] MEDS ORDERED: MULVITA PO (14:12)
[2024-11-04] MEDS ORDERED: METO25ER PO (14:12)
--- NOTE | 2024-11-04 15:43 | NUR ---
PT DISCHARGED TO HOME. PT AND FAMILY REFUSING TO SIGN DISCHARGE PAPERWORK. PT'S FAMILY STATING HE WILL NOT TAKE THE PT HOME UNLESS SENT HOME WITH MEDICATIONS, STATING HE DOES NOT WANT TO DEAL WITH A PHARMACY AND THE PT CAN JUST STAY UNTIL WEDNESDAY. PT REQUESTS FOR MEDICATIONS TO BE SENT TO [facility]. PT NOTIFIED THAT [facility] IS NO LONGER OPEN.
== END 2024-11-04 15:43 | disposition home health service (06) | DRG 896 ==
LOC: ER 20:41 → MEDS 20:42 → ERHOLD 20:42 → ER 20:42 → ERHOLD 20:42 → MEDS 10-30 14:55 → ERHOLD 10-30 14:56 → MEDS 10-30 14:56 → ERHOLD 10-30 15:01 → MEDS 10-30 15:01
PROVIDERS: Internal Medicine; Student in an Organized Health Care Education/Training Program; ADMIT Student in an Organized Health Care Education/Training Program
PROC: HZ2ZZZZ Detoxification Services for Substance Abuse Treatment (ICD-10-PCS; principal; 2024-10-30)
DX: F10.939 Alcohol use, unspecified with withdrawal, unspecified (principal); E43 Unspecified severe protein-calorie malnutrition; E87.1 Hypo-osmolality and hyponatremia; E86.0 Dehydration; E88.89 Other specified metabolic disorders; T73.0XXA Starvation, initial encounter; D72.829 Elevated white blood cell count, unspecified; E87.6 Hypokalemia; K76.0 Fatty (change of) liver, not elsewhere classified; K80.20 Calculus of gallbladder without cholecystitis without obstruction; L50.9 Urticaria, unspecified; I10 Essential (primary) hypertension; K21.9 Gastro-esophageal reflux disease without esophagitis; Z86.79 Personal history of other diseases of the circulatory system; Z88.5 Allergy status to narcotic agent; Z88.8 Allergy status to other drugs, medicaments and biological substances; Z79.899 Other long term (current) drug therapy; Z68.23 Body mass index [BMI] 23.0-23.9, adult
CPT/HCPCS: 36415; 71046; 76705; 80053; 81001; 82010; 83605; 83690; 83735; 84100; 84484; 85025; 87086; 93005; 93010; 96361; 96365; 96367; 96372-59; 96375; 96376; 99285-25; A9270; G0378; J0360; J1650; J2060; J2405; J3360; J3411; J3480; J7030; J7042; J7050; J7120